=== PATIENT | female | born 1955 | race Caucasian/White ===

== ENCOUNTER 2019-04-15 17:03 | Outpatient (RCR) | payer OTHER, SELFPAY ==
--- NOTE | 2019-04-15 17:37 | PTOPEVAL ---
Thank you for referring this patient to [facility]. Please review, sign, date and return this plan of care BRIAN. I agree with and certify that the following plan of care is medically necessary. Referring Physician Date Admitting Provider: Attending Provider: Dilshad Portillo MD Referring Provider: *PT Outpatient Evaluation Start: 04/15/19 17:12 Freq: Status: Active Protocol: Document 04/15/19 17:14 [facility] (Rec: 04/15/19 17:36 [email or web address]) Therapy Assessment Status Assessment Status Assessment Status Evaluation Evaluation Information Problem Diagnosis neck pain Onset 04/08/19 Subjective Information Pt. reports that she developed Query Text:As Reported By Patient/ neck pain first in September of 2017. she reports she did therapy and was comfortable for 1 1/2 years. She reports 1 week ago pain came on again. she describes pain in the left side of the neck, into the left shoulder blade and long term down the left arm. She reports her goal is to decrease her pain. Previous Treatments Previous Treatments For This Problem PT with STM and exercise Prior Level of Function Activity Level (Last 3 Months) Hand Dominance Right Activity of Daily Living Ability Independent Indoor/Home Mobility Independent Community Mobility Independent Stairs Ability Independent Functional Cognition (Planning, Shopping Independent , Taking Medications) Cooking Yes Cleaning Yes Laundry Yes Shopping Yes Driving Yes Comments Additional Prior Level of Function Pt. 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 Pain Assessment Timing of Pain Assessment Timing of Pain Assessment Pre-Treatment Pain Scale Pain Scale Used Numeric (1 - 10) Self Report Pain Assessment Neck Reported Pain Level 2 Pain Frequency Continuous Current Pain Intensity 2 Lowest Pain Intensity 2 Greatest Pain Intensity 9 Pain Aggravating Factors Prolonged Position Other Pain Aggravating Factors having her head tilted at an
--- NOTE | 2019-05-06 09:50 | PCPTNOTE ---
05/06/19, pt cancelled appointment on 05/04/19 no reason stated. -.
--- NOTE | 2019-06-24 12:41 | PTOPEVAL ---
Thank you for referring this patient to [facility]. Please review, sign, date and return this plan of care BRIAN. I agree with and certify that the following plan of care is medically necessary. Referring Physician Date Admitting Provider: Attending Provider: Dilshad Portillo MD Referring Provider: *PT Outpatient Evaluation Start: 04/15/19 17:12 Freq: Status: Active Protocol: Document 04/15/19 17:14 [place] (Rec: 04/15/19 17:36 [email or web address]) Therapy Assessment Status Assessment Status Assessment Status Evaluation Evaluation Information Problem Diagnosis neck pain Onset 04/08/19 Subjective Information Pt. reports that she developed Query Text:As Reported By Patient/ neck pain first in September of 2017. she reports she did therapy and was comfortable for 1 1/2 years. She reports 1 week ago pain came on again. she describes pain in the left side of the neck, into the left shoulder blade and nursing home down the left arm. She reports her goal is to decrease her pain. Previous Treatments Previous Treatments For This Problem PT with STM and exercise Prior Level of Function Activity Level (Last 3 Months) Hand Dominance Right Activity of Daily Living Ability Independent Indoor/Home Mobility Independent Community Mobility Independent Stairs Ability Independent Functional Cognition (Planning, Shopping Independent , Taking Medications) Cooking Yes Cleaning Yes Laundry Yes Shopping Yes Driving Yes Comments Additional Prior Level of Function Pt. 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 Pain Assessment Timing of Pain Assessment Timing of Pain Assessment Pre-Treatment Pain Scale Pain Scale Used Numeric (1 - 10) Self Report Pain Assessment Neck Reported Pain Level 2 Pain Frequency Continuous Current Pain Intensity 2 Lowest Pain Intensity 2 Greatest Pain Intensity 9 Pain Aggravating Factors Prolonged Position Other Pain Aggravating Factors having her head tilted at an
--- NOTE | 2019-06-24 12:41 | PCPTNOTE ---
Pt. has failed to return to the clinic. She will be discharged at this time. Refer to last daily note for pt. discharge status.
== END 2019-04-15 17:04 | disposition home or self-care (01) ==
LOC: CHSPT 17:03
PROVIDERS: Visit Provider Internal Medicine
DX: M54.2 Cervicalgia (principal)
CPT/HCPCS: 97014; 97110; 97161; G0283

== ENCOUNTER 2020-09-08 12:14 | Outpatient (CLI) | payer OTHER, SELFPAY ==
--- NOTE | ~2020-09-08 | DEXA_ITS ---
Bone Density Report Name: Kalani Headley Age: 65 Sex: Female Ethnicity: White Date of : 1955 Indication: postmenopausal; screening for osteoporosis; height loss; Referring Provider: Dilshad Portillo Study: Bone densitometry was performed. Exam Date: September 08, 2020 Accession number: [id number] Bone Density: Region BMD T-score Z-score Classification AP Spine(L1-L4) 1.015 -0.3 1.4 Normal Femoral Neck (Left) 0.749 -0.9 0.5 Normal Total Hip (Left) 1.042 0.8 1.9 Normal Femoral Neck (Right) 0.877 0.3 1.7 Normal Total Hip (Right) 1.068 1.0 2.2 Normal Femoral Neck Mean 0.813 -0.3 1.1 Normal Total Hip Mean 1.055 0.9 2.1 Normal World Health Organization criteria for BMD impression classify patients as: Normal (T-score at or above -1.0), Osteopenia (T-score between -1.0 and -2.5), or Osteoporosis (T-score at or below -2.5). 10-year Fracture Risk: FRAX not reported because: All T-scores for Spine Total, Hip Total, Femoral Neck at or above -1.0 Previous Exams: Region Exam Age BMD T-score BMD Change BMD Change Date g/cm2 vs Baseline vs Previous AP Spine (L1-L4) 09/08/2020 65 1.015 -0.3 -0.008 (-0.8%) -0.001 (-0.1%) 09/13/2016 61 1.016 -0.3 -0.007 (-0.7%) 0.063 (6.6%)* 06/16/2010 55 0.954 -0.8 -0.070 (-6.8%) -0.070 (-6.8%) 02/02/2008 52 1.023 -0.2 Total Hip(Left) 09/08/2020 65 1.042 0.8 0.094 (10.0%)# 0.043 (4.3%)# 09/13/2016 61 0.999 0.5 0.052 (5.4%)* -0.004 (-0.4%) 06/16/2010 55 1.003 0.5 0.055 (5.9%)* 0.055 (5.9%)* 02/02/2008 52 0.947 0.0 Total Hip(Right) 09/08/2020 65 1.068 1.0 0.018 (1.7%)# 0.048 (4.7%)# 06/16/2010 55 1.020 0.6 -0.030 (-2.9%) -0.030 (-2.9%) 02/02/2008 52 1.050 0.9 *Denotes significance at 95% confidence level, LSC for AP Spine = 0.022 g/cm2, LSC for Total Hip = 0.027 g/cm2 # Denotes dissimilar scan types or analysis methods Clinical Information Provided by Patient: Has used the following medications: Vitamin D Patient maximum height was 64 Onset of menses at age 15 Number of children 1 Impression: The patient has normal bone mass. No significant bone loss was observed. Discussion: BONE DENSITY IS ABOVE THE MINIMUM DESIRABLE LEVEL AT ALL SKELETAL SITES TESTED. This patient?s bone mineral density is above the minimum desirable level (T-score -1.0 or better) at all sites measured. The patient should follow a
--- NOTE | ~2020-09-08 | MM_ITS ---
EXAMINATION: MM screening [facility] BI w [facility]arrison HISTORY: Screening mammogram TECHNIQUE: Craniocaudal and mediolateral oblique 3-D tomosynthesis images were obtained and synthetic 2-D images were generated. CAD analysis was submitted and interpreted. COMPARISON: 09/13/2016, 08/03/2015, 07/21/2012 BREAST PARENCHYMAL COMPOSITION: The breasts are almost entirely fatty. FINDINGS: There is no evidence of suspicious mass, calcification, or architectural distortion to sugg est malignancy in either breast. There has been no suspicious interval change. IMPRESSION: 1. No mammographic evidence of malignancy. 2. Recommend routine screening mammography in one year. BI-RADS Category 1: Negative Reviewed, dictated and finalized at location A.
== END 2020-09-08 12:15 | disposition home or self-care (01) ==
PROVIDERS: PCP Internal Medicine; Visit Provider Internal Medicine
DX: Z12.31 Encounter for screening mammogram for malignant neoplasm of breast (principal); Z78.0 Asymptomatic menopausal state
CPT/HCPCS: 77063; 77067; 77080

== ENCOUNTER 2020-11-02 15:55 | Outpatient (RCR) | payer OTHER, SELFPAY ==
--- NOTE | 2020-11-02 16:22 | PTOPEVAL ---
Thank you for referring Kalani Headley to [facility].? The patient is scheduled to be seen for therapy? __2__x/week for 8 visits. Please review, sign, date and return this plan of care BRIAN. I agree with and certify that the following plan of care is medically necessary. Referring Physician Date Admitting Provider: Attending Provider: Carmen Mckinney, LOOKBACK COORDINATOR Referring Provider: *PT Outpatient Evaluation Start: 11/02/20 15:52 Freq: Status: Active Protocol: Document 11/02/20 15:55 OTILIA (Rec: 11/02/20 16:19 [email or web address]) Therapy Assessment Status Assessment Status Assessment Status Evaluation Evaluation Information Problem Diagnosis neck pain Onset 10/27/20 Subjective Information Pt. reports that she woke with Query Text:As Reported By Patient/ neck pain about 1 week ago. Family She has a hx of on/off neck pain. She notes pain into the described upper trap and radiating down the left arm. Pt. notes a dull ache in the upper arm and tingling at the fingers. She states that she does get a sharp pain into the neck. she was given mm. relaxor and anti-inflammatory medication. She states that she has had success with therapy in the past. She reports that she is only mildly distrubed with sleep. She reports her goal is to decrease her pain. 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
--- NOTE | 2020-12-22 21:16 | PTOPEVAL ---
Thank you for referring Kalani Headley to [facility].? The patient is scheduled to be seen for therapy? ____x/week for ___ weeks. Please review, sign, date and return this plan of care BRIAN. I agree with and certify that the following plan of care is medically necessary. Referring Physician Date Admitting Provider: Attending Provider: Carmen Mckinney, [facility] Referring Provider: *PT Outpatient Evaluation Start: 11/02/20 15:52 Freq: Status: Active Protocol: Document 12/15/20 17:00 [facility] (Rec: 12/22/20 21:15 J filej) Therapy Assessment Status Assessment Status Assessment Status Discharge Evaluation Information Problem Diagnosis neck pain Onset 10/27/20 Additional Evaluation Detail NDI = 2% functionally declined Subjective Information patient reports she does not Query Text:As Reported By Patient/ feel 100% improved, but Family reports 60-70% improvement in sensation and functional performance. she reporrts she is able to work without severe symptoms, and reports she is able to find relief with exercises and traction. she reports her symptoms are no longer constant. she reports she returns back to the MD in about 1 month. she reports she is compliant with HEP at home , and uses the home mechanics/ pneumatic traction device 2 times a week. Pain Assessment Timing of Pain Assessment Timing of Pain Assessment Assessment Pain Scale Pain Scale Used Numeric (1 - 10) Self Report Pain Assessment Left Arm(s) Reported Pain Level 2 Neck Reported Pain Level 0 Pain Score Pain Score 2,0: Self Report Interventions Used Interventions Used By Clinicians Electrical Stimulation, Exercise,Heat,Traction Cervical and Lumbar ROM Cervical ROM Cervical Flexion (0-60) 50 Query Text:Active in Degrees Cervical Extension (0-70) 60 Query Text:Active in Degrees Cervical Lateral Flexion Right (0-50) 35 Query Text:Active in Degrees Cervical Lateral Flexion Left (0-50) 35 Query Text:Active in Degrees Cervical Rotation Right (0-90) 75 Query Text:Active in Degrees Cervical Rotation Left (0-90) 70 Query Text:Active in Degrees Cervical and Lumbar Muscle Testing Cervical Muscle Testing Cervical Flexion 4 Good Cervical Extension
== END 2020-12-15 08:37 | disposition home or self-care (01) ==
LOC: CHSPT 15:55
PROVIDERS: PCP Nurse Practitioner Family; Visit Provider Nurse Practitioner Family
DX: M54.2 Cervicalgia (principal)
CPT/HCPCS: 97012; 97014; 97110; 97140; 97161; G0283

== ENCOUNTER 2020-11-16 09:42 | Outpatient (CLI) | payer OTHER, SELFPAY ==
--- NOTE | ~2020-11-16 | MR_ITS ---
EXAMINATION: MR cervical spine wo con EXAM DATE: 11/16/2020 10:41 INDICATION: Cervical disc disorder at C5-C6 level radiculopath. TECHNIQUE: Multi-sequential, multiplanar MR images of the cervical spine were obtained without contra st. Axial T2, axial T2 MERGE sequence. Sagittal T1, T2, T2 fat saturation images also obtained. Com parison is made to prior examination from 12/23/2017. FINDINGS: Moderate disc disease at C5-6 and 6-7, mild to moderate at C3-4. The spinal cord signal in tensity and intrinsic morphology is normal. Cervicomedullary junction is normal in appearance. There are no suspicious marrow signal abnormalities. Paraspinal soft tissue is unremarkable. The vertebral bodies are aligned in the AP dimension. Level by level evaluation: C2-C3: Disc does not extend beyond the endplate margin. Uncovertebral joint arthropathy: None. Facet joint arthropathy: Moderate right, mild left. Neural foraminal stenosis: No stenosis. Central canal stenosis: No stenosis. C3-C4: There is a mild diffuse disc bulge. Uncovertebral joint arthropathy: Mild bilateral. Facet joint arthropathy: Mild to moderate bilateral. Neural foraminal stenosis: Mild bilateral. Central canal stenosis: Minimal. C4-C5: Disc does not extend beyond the endplate margin. Uncovertebral joint arthropathy: Mild bilateral. Facet joint arthropathy: Moderate to severe right, mild to moderate left. Neural foraminal stenosis: Mild right. Central canal stenosis: No stenosis. C5-C6: There is a mild diffuse disc bulge. Uncovertebral joint arthropathy: Moderate right, mild left. Facet joint arthropathy: Mild to moderate bilateral. Neural foraminal stenosis: Moderate right, mild to moderate left. Central canal stenosis: Mild. C6-C7: There is a mild diffuse disc bulge. Uncovertebral joint arthropathy: Moderate right, mild to moderate left. Facet joint arthropathy: Mild bilateral. Neural foraminal stenosis: Moderate to severe bilateral. Central canal stenosis: Mild. C7-T1: Disc does not extend beyond the endplate margin. Uncovertebral joint arthropathy: Mild bilateral. Facet joint arthropathy: Mild bilateral. Neural foraminal stenosis: No stenosis. Central canal stenosis: No stenosis. Mild interval progression in disc disease compared to 2018. IMPRESSION: 1. C6-7 moderate to severe neural foraminal stenosis bilaterally. 2. Less stenosis other levels. Reviewed, dictated and finalized at location A.
== END 2020-11-16 09:43 | disposition home or self-care (01) ==
LOC: CHSIMG 09:43
PROVIDERS: PCP Internal Medicine; Visit Provider Internal Medicine
DX: M54.12 Radiculopathy, cervical region (principal); M48.02 Spinal stenosis, cervical region
CPT/HCPCS: 72141

== ENCOUNTER 2021-10-27 09:32 | Outpatient (CLI) | payer OTHER, SELFPAY ==
--- NOTE | 2021-10-27 09:55 | PC.NURSE ---
Pt to room 211 amb. A&Ox3. Has no complaints. Plan of care explained. Consent signed. Pt without questions. Oriented to room. Call rodriguez in reach.
[2021-10-27] MEDS: BEBTELOVIMAB 175 MG/2 ML VIAL IV PUSH (10:00)
[2021-10-27] MEDS: diphenhydrAMINE HCl CAP 25 MG CAPSULE PO (10:00)
[2021-10-27] MEDS: FAMOTIDINE 20 MG TABLET PO (10:00)
[2021-10-27] MEDS: ACETAMINOPHEN 325 MG TABLET 650 MG PO (10:00)
--- NOTE | 2021-10-27 10:51 | PC.NURSE ---
Pt tolerated medication well. Has no complaints. Discharged to home amb per self.
== END 2021-10-27 09:33 | disposition home or self-care (01) ==
PROVIDERS: PCP Internal Medicine; Visit Provider Nurse Practitioner Family
DX: U07.1 COVID-19 (principal); I10 Essential (primary) hypertension; J44.9 Chronic obstructive pulmonary disease, unspecified
CPT/HCPCS: A9270; M0222; Q0222

== ENCOUNTER 2022-09-13 14:26 | Outpatient (CLI) | payer OTHER, SELFPAY ==
--- NOTE | ~2022-09-13 | XR_ITS ---
Right Shoulder Technique: AP and scapular Y views were obtained. Clinical History: Pain Findings: No fracture or dislocation is seen. Osseous alignment is anatomic. The glenohumeral and acr omioclavicular joint spaces are preserved. Soft tissues are unremarkable. Impression: Unremarkable right shoulder radiographs. Reviewed, dictated and finalized at [facility]. Impression: Unremarkable right shoulder radiographs.
== END 2022-09-13 14:27 | disposition home or self-care (01) ==
PROVIDERS: PCP Internal Medicine; Visit Provider Internal Medicine
DX: M25.511 Pain in right shoulder (principal)
CPT/HCPCS: 73030

== ENCOUNTER 2022-09-18 16:00 | Outpatient (RCR) | payer OTHER, SELFPAY ==
--- NOTE | 2022-09-20 08:13 | OPREHPOC ---
Outpatient Therapy Plan of Care This is a Multidisciplinary Plan of Care that may contain components documented by all disciplines (PT, OT, and ST.) PT Problem 1 PT Problem #1 Knowledge Deficit PT Goal 1 Goal The patient will demonstrate independence with a home exercise program to continue after discharge from skilled PT. Target Visit 8 PT Problem 2 PT Problem #2 Pain PT Goal 1 Goal The patient will report no greater than 2/10 right shoulder pain with lifting household items. Target Visit 8 PT Problem 3 PT Problem #3 Impaired Range of Motion PT Goal 1 Goal The patient will demonstrate right shoulder flexion AROM of 165 degrees without pain elicited to improve reaching overhead ability. Target Visit 8 PT Problem 4 PT Problem #4 Impaired Strength PT Goal 1 Goal The patient will lift 5 lbs overhead for 10 repetitions without pain in order to return to putting items into overhead cabinets. Target Visit 8
--- NOTE | 2022-09-20 08:13 | PTOPEVAL1 ---
Assessment and note entered by Charleen Wallis, PT Evaluation Information Assessment Status Evaluation Diagnosis R shoulder pain Onset 09/14/22 Subjective Information Kalani Headley reports she started having right shoulder pain approximately 2.5 months ago for unknown reasons. She started noticing the pain when she would lift a jug and try to pour the liquid out. She then started having pain with lifting out to the side. She notes the pain is easing but she had her annual check up last week and mentioned the shoulder pain. Her doctor referred her to have a x-ray and to PT. She reports no results of the x-ray were shared with her. Reported Pain Level Pain Score 3: Self Report Assessment PT Clinical Summary Kalani Headley presents with right shoulder pain with an insidious onset approximately 2.5 months ago. She is reporting difficulty with reaching to the side and overhead leading to deficits in daily function. She objectively demonstrates decreased and painful right shoulder flexion ROM, decreased right shoulder strength, positive special tests consistent with rotator cuff tendonitis and impingement, and decreased functional abilities. She will benefit from skilled PT to address these limitations and return her to her previous level of function. Plan of Care Interventions Electrical Stimulation,Hot Pack/Cold Pack,Manual Therapy,Patient/Caregiver Educati,Therapeutic Activities,Therapeutic Exercise PT Services Indicated Yes Treatment Frequency and 2 times a week for 8 visits Duration These treatments will address the objective and functional deficits as defined above. The patient will be advanced safely and appropriately in order for the patient to progress towards his/her prior level of function. Additional exercises will be introduced and as well as a comprehensive home exercise program upon discharge, if needed, ?to ensure carryover of functional gains achieved in the clinic. This treatment plan has been reviewed and agreement upon by the patient.
--- NOTE | 2022-10-18 12:43 | PTOPDC ---
Assessment and note entered by JT File, PT Evaluation Information Assessment Status Discharge Diagnosis R shoulder pain Onset 09/14/22 Subjective Information patient reports she feels great today. she reports the shoulder is much better. she has no pain. 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 she presents today having met all goals for skilled PT. she will DC skilled PT today and continue with HEP independent . Plan of Care PT Services Indicated Yes
--- NOTE | 2022-10-18 12:43 | OPREHPOC ---
Outpatient Therapy Plan of Care This is a Multidisciplinary Plan of Care that may contain components documented by all disciplines (PT, OT, and ST.) PT Problem 1 PT Problem #1 Knowledge Deficit PT Goal 1 Goal The patient will demonstrate independence with a home exercise program to continue after discharge from skilled PT. Target Visit 8 Progress Met PT Problem 2 PT Problem #2 Pain PT Goal 1 Goal The patient will report no greater than 2/10 right shoulder pain with lifting household items. Target Visit 8 Progress Met PT Problem 3 PT Problem #3 Impaired Range of Motion PT Goal 1 Goal The patient will demonstrate right shoulder flexion AROM of 165 degrees without pain elicited to improve reaching overhead ability. Target Visit 8 Progress Met PT Problem 4 PT Problem #4 Impaired Strength PT Goal 1 Goal The patient will lift 5 lbs overhead for 10 repetitions without pain in order to return to putting items into overhead cabinets. Target Visit 8 Progress Met
== END 2022-10-18 13:33 | disposition home or self-care (01) ==
LOC: CHSPT 16:00
PROVIDERS: PCP Internal Medicine; Visit Provider Internal Medicine
DX: M25.511 Pain in right shoulder (principal)
CPT/HCPCS: 97014; 97110; 97112; 97161; G0283

== ENCOUNTER 2022-09-20 11:44 | Outpatient (CLI) | payer OTHER, SELFPAY ==
--- NOTE | ~2022-09-20 | MM_ITS ---
EXAMINATION: MM screening [facility] BI w [facility] HISTORY: Screening mammogram TECHNIQUE: Craniocaudal and mediolateral oblique 3-D tomosynthesis images were obtained and synthetic 2-D images were generated. CAD analysis was submitted and interpreted. COMPARISON: 09/08/2020, 09/13/2016, 08/03/2015 BREAST PARENCHYMAL COMPOSITION: The breasts are almost entirely fatty. FINDINGS: No suspicious mass, calcification, or architectural distortion are identified in either peri ast to suggest malignancy. There has been no suspicious interval change. IMPRESSION: 1. No mammographic evidence of malignancy. 2. Recommend routine screening mammography in one year. BI-RADS Category 1: Negative Reviewed, dictated and finalized at location A.
== END 2022-09-20 11:45 | disposition home or self-care (01) ==
LOC: CHSIMG 11:45
PROVIDERS: PCP Internal Medicine; Visit Provider Internal Medicine
DX: Z12.31 Encounter for screening mammogram for malignant neoplasm of breast (principal)
CPT/HCPCS: 77063; 77067

== ENCOUNTER 2022-10-18 07:47 | Outpatient (CLI) | payer OTHER, SELFPAY ==
--- NOTE | ~2022-10-18 | US_ITS ---
EXAMINATION: US aorta [facility] DATE: 10/18/2022 08:34 CDT INDICATION: Abdominal aortic aneurysm screening. Hypertension. Obesity. TECHNIQUE: Grayscale, color Doppler, and pulsed Doppler images of the aorta and common iliac arteries were obtained. COMPARISON: No prior studies for comparison. FINDINGS: The proximal aorta is not visualized due to patient body habitus and bowel gas. The mid aorta measure s 1.8 cm sagittal dimension. The distal aorta measures 1.4 cm sagittal dimension. The right common in ternal iliac artery measures 1 cm. The left common iliac artery measures 1 cm. IMPRESSION: 1. Normal caliber aorta without evidence for aneurysm. Limited study. Proximal abdominal aorta not vi sualized. Reviewed, dictated and finalized at location L. IMPRESSION: 1. Normal caliber aorta without evidence for aneurysm. Limited study. Proximal abdominal aorta not visualized.
--- NOTE | ~2022-10-18 | CT_ITS ---
EXAMINATION: CT lung screening DATE: 10/18/2022 08:30 INDICATION: Shortness of breath. Lung cancer screening. COPD. TECHNIQUE: Computed tomography (CT) of the chest was performed without intravenous contrast. The dose -length product was 387.94 mGy-cm. Automated exposure control and iterative reconstruction technique were employed. COMPARISON: Chest x-ray dated 09/21/2017 FINDINGS: Mild atherosclerosis of the aorta and coronary arteries. No significant pleural or pericard ial effusion. There are cholecystectomy clips. The upper abdomen is otherwise unremarkable. No thorac ic lymphadenopathy. Mild thoracic spondylosis. No endobronchial lesions. No pneumothorax. No focal ai rspace consolidation. There is a 2 mm right upper lobe nodule, image 29. There is a 2 mm fissural nod ule on the right, coronal image 104. IMPRESSION: 1. Lung-RADS category 2: Benign appearance or behavior. Continue annual screening with noncontrast lo w-dose chest CT in 12 months. Reviewed, dictated and finalized at location L. IMPRESSION: 1. Lung-RADS category 2: Benign appearance or behavior. Continue annual screeni ng with noncontrast low-dose chest CT in 12 months.
== END 2022-10-18 07:48 | disposition home or self-care (01) ==
PROVIDERS: PCP Internal Medicine; Visit Provider Internal Medicine
DX: Z12.2 Encounter for screening for malignant neoplasm of respiratory organs (principal); Z87.891 Personal history of nicotine dependence
CPT/HCPCS: 71271; 76706

== ENCOUNTER 2023-10-28 08:53 | Outpatient (CLI) | payer OTHER, SELFPAY ==
--- NOTE | 2023-10-28 09:06 | EST_ITS ---
Patient Info Name: Kalani Headley Age: 68 years : 1955 Gender: Female Ht: 65 in Wt: 299 lbs BSA: 2.58 m2 HR: 85 bpm BP: 169 / 68 mmHg Heart Rhythm: Sinus Rhythm Technical Quality: Good Exam Date: 10/28/2023 9:52 AM Exam Location: Echo Lab Patient Status: Outpatient Admit Date: 10/28/2023 Staff Ordering Physician: Dilshad Portillo MD Attending Provider: Dilshad Portillo MD Exam Type: CA stress jay w NM Study Info A regadenoson stress test was performed. History/Risk Factors Hypertension: Yes Obesity: Yes COPD: Not Treated Summary 1. 1. Negative lexiscan stress test for ischemic ST changes by ECG criteria. 2. 2. Baseline hypertension. 3. 3. Nuclear scan to follow and will be reported separately. Please correlate with it. Protocol: LEXISCAN Stress ECG Details Stage: REST Duration (min): 5 min : 6 sec HR (bpm): 89 SBP (mmHg): 169 DBP (mmHg): 68 Stage: REST Duration (min): 9 min : 19 sec HR (bpm): 73 SBP (mmHg): 169 DBP (mmHg): 68 Stage: STAGE 1 Duration (min): 0 min : 27 sec HR (bpm): 79 SBP (mmHg): 169 DBP (mmHg): 68 Stage: RECOVERY Duration (min): 0 min : 32 sec HR (bpm): 98 SBP (mmHg): 169 DBP (mmHg): 68 Stage: RECOVERY Duration (min): 1 min : 32 sec HR (bpm): 102 SBP (mmHg): 169 DBP (mmHg): 68 Stage: RECOVERY Duration (min): 2 min : 32 sec HR (bpm): 89 SBP (mmHg): 141 DBP (mmHg): 68 Stage: RECOVERY Duration (min): 3 min : 32 sec HR (bpm): 90 SBP (mmHg): 141 DBP (mmHg): 68 Stage: RECOVERY Duration (min): 4 min : 32 sec HR (bpm): 94 SBP (mmHg): 141 DBP (mmHg): 68 Stage: RECOVERY Duration (min): 5 min : 32 sec HR (bpm): 88 SBP (mmHg): 126 DBP (mmHg): 71 Stage: RECOVERY Duration (min): 6 min : 19 sec HR (bpm): 81 SBP (mmHg): 123 DBP (mmHg): 77 Rest HR: 73 bpm Peak HR: 102 bpm Rest Sys BP: 169 mmHg Peak Sys BP: 141 mmHg Max Pred HR: 154 bpm % Max Pred HR: 66 % Target HR: 131 bpm Max RPP: 14,382 bpm*mmHg BP Response: Normal blood pressure response Termination Reason: Completed Protocol Cardiac Symptoms: None Total Time: 0 min : 27 sec Rest Farrell BP: 68 mmHg Peak Farrell BP: 68 mmHg Total Dose: 0.4 mg Resting ECG Normal sinus rhythm, low voltage in diffuse leads. Stress ECG No abnormal ST/T wave changes. Arrhythmias Occasional PACs. Occasional PVCs. Report Signatures
--- NOTE | 2023-10-28 15:04 | WPDCARIOSTRE ---
Nuclear Stress Test INDICATIONS Indications: Dyspnea PROCEDURE Procedure Performed: Myocardial Perf Spect-Multi Procedure: Patient underwent a lexiscan stress test and immediately was injected with 33.2 mCi of cardiolyte. Multiple tomographic images were obtained. These are of good quality. There is a moderate size, severe anterior perfusion defect with stress imaging. A separate resting images were obtained after patient was injected with 10.5 mCi of cardiolyte. Multiple tomographic images were obtained. These are of good quality. There is no perfusion defect with rest imaging. CONCLUSION Conclusion: 1. Abnormal myocardial perfusion imaging demonstrating moderate size anterior perfusion defect with stress imaging suggestive of anterior ischemia. 2. Left ventriculogram demonstrates normal measured ejection fraction of 62% with no wall motion abnormalities. 3. TID score 1.02 is normal.
== END 2023-10-28 08:54 | disposition home or self-care (01) ==
LOC: CHSIMG 08:55
PROVIDERS: PCP Internal Medicine; Visit Provider Internal Medicine
DX: R06.00 Dyspnea, unspecified (principal); I25.10 Atherosclerotic heart disease of native coronary artery without angina pectoris; R94.39 Abnormal result of other cardiovascular function study
CPT/HCPCS: 78452; 93017; A9502; J2785

== ENCOUNTER 2024-05-14 12:50 | Outpatient (CLI) | payer OTHER, SELFPAY ==
--- NOTE | ~2024-05-14 | CT_ITS ---
EXAMINATION: CT lung screening DATE: 05/14/2024 13:14 INDICATION: SMOKER screening-QUIT X15YR AGO,CHRONIC SOB,COPD TECHNIQUE: Computed tomography (CT) of the chest was performed without intravenous contrast. Addition al 3D reconstructions utilizing coronal maximum intensity projection (MIP) were performed. Automated exposure control and iterative reconstruction technique were employed. The dose-length product was 46 3.00 mGy-cm. COMPARISON: 10/18/2022 FINDINGS: No significant change in a few scattered 2 mm or smaller bilateral pulmonary nodules. No pneumonia, p ulmonary edema or pleural effusion. Heart size is normal. Atherosclerotic coronary artery calcificati on. No pericardial effusion. Thoracic aorta is normal in caliber. No pathologically enlarged thoracic lymphadenopathy. Cholecystectomy clips at gallbladder fossa. Mild thoracic spondylosis. IMPRESSION: 1. Lung-RADS category 2: Benign appearance or behavior. Continue annual screening with noncontrast lo w-dose chest CT in 12 months. Reviewed, dictated and finalized at location B. LE WEB APPLICATION DEVELOPER IMPRESSION: 1. Lung-RADS category 2: Benign appearance or behavior. Continue annual screeni ng with noncontrast low-dose chest CT in 12 months.
== END 2024-05-14 12:51 | disposition home or self-care (01) ==
LOC: CHSIMG 12:53
PROVIDERS: PCP Internal Medicine; Visit Provider Internal Medicine
DX: Z12.2 Encounter for screening for malignant neoplasm of respiratory organs (principal); Z87.891 Personal history of nicotine dependence
CPT/HCPCS: 71271

== ENCOUNTER 2024-08-23 13:21 | Emergency (ER) | payer OTHER, SELFPAY ==
--- NOTE | ~2024-08-23 | XR_ITS ---
XR hip LT 2V w AP pelvis Ordering provider: Riley Betancourt MD History: . onset today, Lt. hip pain radiates up lower back. NKI . Comparison: None. FINDINGS: BONES: No acute fracture or dislocation. HIP JOINT SPACES: Moderate osteoarthritis bilaterally SACROILIAC JOINT SPACES/LUMBAR SPINE: The sacroiliac joint spaces are normal. Mild degenerative elizabeth es of the visualized lower lumbar spine. PUBIC SYMPHYSIS: Normal. SOFT TISSUES: Normal. IMPRESSION: No acute osseous abnormality pelvis and left hip. Bilateral moderate osteoarthritic changes. Reviewed, dictated and finalized at location A.
--- NOTE | ~2024-08-23 | XR_ITS ---
3 VIEWS LUMBAR SPINE Ordering provider: Riley Cruz MD History: . onset today, Lt. hip pain radiates up lower back. NKI . Comparison: None. FINDINGS: VERTEBRAL BODIES: No visible fracture or subluxation. Degenerative changes of the spine. DISK SPACES: Narrowing of the disc L1-L2, L2-L3, and L5-S1. Multilevel facet joint disease. SOFT TISSUES: Normal. IMPRESSION: No acute osseous abnormality lumbar spine. Multilevel degenerative disc disease. Reviewed, dictated and finalized at location A.
[2024-08-23 13:23] VITALS: BP 133/75; PULSE 73; RESP 20; TEMP 36.7; O2SAT 96
--- OUTSIDE RECORDS SUMMARY | 2024-08-23 13:23 | XMS_ITS | Encounter Summary ---
Author Organization [facility] Address [facility] [place] [address] Care Team Providers Care Rn Peritoneal Dialysis Name Role Phone Dilshad Portillo MD Primary Care Provider [phone] Gee Coyle MD Unavailable [phone] Encounter Details Date Type Department Care Team (Late st Contact Info) Description 09/19/2017 Abstract [facility] [address] [place] [phone] Gee Coyle MD [address] [place] [address] Social History Tobacco Use Types Packs/Day Years Used Date Smoking Tobacco: Former Smokeless Tobacco: Never Alcohol Use Standard Drinks/Week Comments No 0 (1 standard drink = 0.6 oz pur e alcohol) Comments Unknown Sex and Gender Information Value Date Recorded Sex Assigned at Not on file Legal Sex Female 8:42 AM CDT Gender Identity Not on file Sexual Orientation Not on file 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
--- OUTSIDE RECORDS SUMMARY | 2024-08-23 13:23 | XMS_ITS ---
Author Organization Unknown Medications Medication Instructions Effective Dates (start - stop) Status ergocalciferol 1.25 MG Oral Capsule 02-26T00:00:00Z - Completed - - Compl eted ergocalciferol 1.25 MG Oral Capsule 05-27T00:00:00Z - Completed hydrochlorothiazide 25 MG / olmesartan medoxomil 40 MG Oral Tablet - Completed hydrochlorothiazide 25 MG / olmesartan medoxomil 40 MG Oral Tablet - Completed ergocalciferol 1.25 MG Oral Capsule 11-05T00:00:00Z - Completed ergocalciferol 1.25 MG Oral Capsule 08-18T00:00:00Z - Completed Patient Care team information Name Category Status Period Participants - - Proposed period not known -
--- OUTSIDE RECORDS SUMMARY | 2024-08-23 13:23 | XMS_ITS | Clinical Summary ---
Author Organization [facility] Address [place] [address] Care Team Providers Care Office Services Representative Name Role Phone Dilshad Portillo MD Primary Care Provider [phone] Gee Coyle MD Unavailable [phone] Allergies No known active allergies Medications fluticasone-salm eterol 250-50 MCG/DOSE inhaler Inhale 1 puff into the lungs 2 (two) times daily. Active albuterol sulfate HFA 108 (90 Base) MCG/ACT inhaler Inhale 2 puffs into the lungs every 6 (six) hours as needed for Wheezing. Active Active Problems Problem Noted Date Diagnosed Date Precordial pain 11/01/2017 COPD (chronic obstructive pu lmonary disease) ([facility]) Obesity HTN (hypertension) Family History Medical History Relation Comments Cancer Father Heart Attack Mother Relation Status Comments Father Mother Social History Tobacco Use Types Packs/Day Years [...] file Not on file Not on file Last Filed Vital Signs Vital Sign Reading Time Taken Comments Blood Pressure 120/64 11/12/2017 8:22 AM CDT left BP 128/62 Pulse 82 11/12/2017 8:22 AM CDT Temperature 36 C (96.8 F) 11/12/2017 8:22 AM CDT Respiratory Rate 16 11/12/2017 8:22 AM CDT Oxygen Saturation 16% 11/12/2017 8:2 2 AM CDT Inhaled Oxygen Concentration - - Weight 134.4 kg (296 lb 4.8 oz) 11/12/2017 8:22 AM CDT Height 163 cm (5' 4.17 ) 11/12/2017 8:2 2 AM CDT Body Mass Index 50.59 11/12/2017 8:22 AM CDT Plan of Treatment Health Maintenance Due Date Last Done Comments Colorectal Cancer Screening Colonoscopy (10 Years) 1955 Hepatitis C 1975 DTaP, Tdap and Td Vaccines ( 1 - Tdap) 1976 Pneumococcal Vaccine: 50+ Ye ars (1 of 2 - PCV) 1976 Mammogram Screening 1997 Zoster Vaccines (1 of 2) 2007 RSV Immunization or 60+ Years (1 - Risk 60-74 years 1-dose series) 2017 Dexa Scan (General) 2022 COVID-19 Vaccine (1 - 2023-2 5 season) 2023 Meningococcal B Vaccine Aged Out No l onger eligible based on patient's age to complete this topic Meningococcal Vaccine Aged Out No sofía hao eligible based on patient's age to complete this topic RSV Immunizations Under 20 Months Aged Out No longer eligible based on patient's age to complete this topic Insurance [facility] [facility] [employer] [facility] Advance Directives * Full Code (Latest Code Status on File) Date Activated Date Inactivated Comments 11/12/2017 12:24 PM 11/12/2017 6:00 PM Care Teams Office Services Representative Relationship Specialty Start Date End Date Dilshad Portillo MD [address] [place] [address] PCP - General INTERNAL MEDICINE 09/25/17 Gee Coyle MD [address] [place] [address] [employer] CARDIOVASCULAR DISEASE 09/25/17
--- NOTE | 2024-08-23 13:24 | ED_ITS ---
HPI - Back Pain/Injury General Chief Complaint: Extremity Injury, Lower Stated Complaint: hip pain Time Seen by Provider: 08/23/24 13:23 Source: patient, family and EMS Mode of arrival: EMS Limitations: no limitations History of Present Illness HPI Narrative: Patient is a 69-year-old female with left hip and left lower back pain that started today specifically. She has chronic pains since a fall many years ago as well. She has a shooting pain in the left hip and buttocks region. Pain is sharp an 8/10. No other symptoms. No urinary or bowel changes. No numbness. No recent injury. MD elicited complaint: other ( patient has acute onset of pain in the lower back and left hip region without injury) Pertinent past history: other ( none) Onset (ago): hour(s) ( 2) Timing: constant Severity: severe Pain scale (0-10): 8 Similar Symptoms Previously: Yes Quality: sharp and other ( shooting but not down the leg; only localized shooting pains of the buttocks on the left) Location: lumbar spine ( lower) Radiation: buttocks ( left) Exacerbating factors: walking Relieving factors: immobilization Context: other ( patient was walking to the kitchen and started to have the pain on the left hip buttocks region as well as lower back and it has not resolved since that time and she got into a chair and called EMS) Associated symptoms: denies other symptoms Treatments prior to arrival: other ( Toradol 30 mg given with EMS) Work related injury: No Related Data Home Medications ?Medication ?Instructions ?Recorded ?Confirmed ?Last Taken ?Type aspirin 81 mg chewable tablet 81 mg PO DAILY 08/23/24 Unknown History (Prasad Chewable Low Dose Aspirin) olmesartan 40 1 tablet PO DAILY 08/23/24 Unknown History mg-hydrochlorothiazide 25 mg tablet Allergies Allergy/AdvReac Type Severity Reaction Status Date / Time No Known Allergies Allergy Unverified 08/23/24 13:23 Review of Systems Review of Systems: All systems reviewed & are unremarkable except as noted in HPI and below Constitutional: Constitutional: Reports no additional constitutional complaints Eyes: Eyes: Reports no additional eye complaints ENT: Reports system reviewed and no additional complaints, except as documented Cardiovascular: Cardiovascular: Reports no additional cardiovascular complaints Respiratory: Respiratory: Reports no additional respiratory complaints Gastrointestinal: Gastrointestinal: Reports no additional gastrointestinal complaints Genitourinary: Genitourinary: Reports no additional female genitourinary complaints Musculoskeletal: Musculoskeletal: Reports no additional musculoskeletal complaints Integumentary/Breasts: Skin/Breast: Reports system reviewed and no additional complaints, except as docu Neurologic: Reports system reviewed and no additional complaints, except as documented Psychiatric: Psychiatric: Reports no additional psychiatric complaints Endocrine: Endocrine: Reports no additional endocrine complaints Hematologic/Lymphatic: Hematologic/Lymphatic: Reports no additional hematologic/lymphatic complaints Allergic/Immunologic: Allergic/Immunologic: Reports no additional allergic/immunologic complaints Exam Const: General: healthy appearing Nutritional Appearance: well nourished and obese Orientation/consciousness: patient oriented x3 HENMT: Head: normal to inspection Ears: external ears normal Face/Nose/Sinus: Normal external nose present Eyes: Conjunctivae: conjunctivae normal Pupils: Equal, round and reactive pupils present EOM: EOMs intact bilaterally Neck: Neck: normal visual inspection Chest: Chest palpation & inspection: normal inspection of the chest Resp: Effort & Inspection: normal respiratory effort and not labored Auscultation: clear to auscultation bilaterally and no crackles Cardio: Rate: regular rate Rhythm: regular rhythm Heart sounds: no murmurs GI: Inspection: non-distended GI Palp: Yes Soft to palpation and No Tenderness to palpation present (GI) Auscultation: normal bowel sounds : General: Yes bladder normal to palpation Back/Spine/Pelvis: Back: no CVA tenderness Skin: General skin exam: normal color Rashes: no rashes Wounds: no wounds Neuro: General: patient oriented x3 Cranial nerves: Yes Nystagmus not present Speech: normal speech Gait exam (Neuro): gait abnormal Other: gait is abnormal due to the pain on the left hip and buttocks region Extrem: General: normal to inspection Other: no sciatica on the left radiating below the knee Psych: Mental Status: mental status grossly normal Affect: normal affect Attitude: cooperative Course Vital Signs Vital signs: Vital Signs Temperature 36.7 C 08/23/24 13:23 Pulse Rate 73 08/23/24 13:23 Respiratory Rate 20 08/23/24 13:23 Blood Pressure 133/75 08/23/24 13:23 Pulse Oximetry 96 08/23/24 13:23 Oxygen Delivery Room Air 08/23/24 13:23 Temperature 36.6 C 08/23/24 15:07 Pulse Rate 75 08/23/24 15:07 Respiratory Rate 18 08/23/24 15:07 Blood Pressure 127/89 08/23/24 15:07 Pulse Oximetry 97 08/23/24 15:07 Oxygen Delivery Room Air 08/23/24 15:07 MDM - Back Pain/Injury MDM Narrative Medical decision making narrative: patient is a 69-year-old female with left buttocks and left hip pain acutely today. We will get x-rays to start and give her pain control. Imaging Data Attestation: I personally reviewed and interpreted this imaging study as follows: Radiologist's impression: X-ray lumbar spine was negative for acute process x-ray left hip and pelvis was negative for acute process Discharge Plan Discharge Clinical Impression: Piriformis syndrome Qualifiers: Laterality: left Qualified Code(s): G57.02 - Lesion of sciatic nerve, left lower limb Patient Disposition: Home Condition: Improved Instructions: Piriformis Syndrome (ED) Patient Language: Chinese Prescriptions: New hydrocodone-acetaminophen 5-325 mg tablet 1 tablet PO Q8H PRN (Reason: pain) Qty: 20 0RF cyclobenzaprine 10 mg tablet 10 mg PO TID PRN (Reason: muscle spasm) Qty: 20 0RF prednisone 20 mg tablet 40 mg PO DAILY 3 Days Qty: 6 0RF No Action aspirin [Prasad Chewable Aspirin] 81 mg tablet,chewable 81 mg PO DAILY olmesartan-hydrochlorothiazide 40-25 mg tablet 1 tablet PO DAILY Follow-up/Referrals: Dilshad Portillo MD [Primary Care Provider] - Time of Disposition: 15:14
[2024-08-23] MEDS: MORPHINE SULFATE (*CRX) 4 MG/ML INJ IM (13:40)
--- OUTSIDE RECORDS SUMMARY | 2024-08-23 14:17 | XMS_ITS | Clinical Summary ---
Author Organization [facility] Address [facility] [place] [address] Care Team Providers Care Inspector Returned Materials Name Role Phone Dilshad Portillo MD Primary Care Provider Gee Coyle MD Unavailable [phone] Allergies No known active allergies Medications fluticasone-salm eterol 250-50 MCG/DOSE inhaler Inhale 1 puff into the lungs 2 (two) times daily. Active albuterol sulfate HFA 108 (90 Base) MCG/ACT inhaler Inhale 2 puffs into the lungs every 6 (six) hours as needed for Wheezing. Active Active Problems Problem Noted Date Diagnosed Date Precordial pain 11/01/2017 COPD (chronic obstructive pu lmonary disease) ([facility]) Obesity HTN (hypertension) Family History Medical History [...] patient's age to complete this topic Insurance [employer] OPEN [facility] [employer] [facility] Advance Directives * Full Code (Latest Code Status on File) Date Activated Date Inactivated Comments 11/12/2017 12:24 PM 11/12/2017 6:00 PM Care Teams Inspector Returned Materials Relationship Specialty Start Date End Date Dilshad Portillo MD [address] [place] [address] PCP - General INTERNAL MEDICINE 09/25/17 Gee Coyle MD [address] [place] [address] [employer] CARDIOVASCULAR DISEASE 09/25/17
--- OUTSIDE RECORDS SUMMARY | 2024-08-23 14:17 | XMS_ITS | Referral Summary ---
Author Organization [facility] Address [facility] [place] [address] Care Team Providers Care Corporate Travel Manager Name Role Phone Dilshad Portillo MD Primary Care Provider Encounters Date Type Department Care Team Description 06/27/2024 9:00 AM FISHERIES OFFICER Telemedicine [facility] Medical Group Virtual Care [address] [place] [phone] Florence Barber NP Acute upper respiratory infection (Primary Dx) 05/25/2024 Telephone [facility] Cardiology [address] [place] [address] Medical Office Building [address] [place] [address] Garcia Portillo MD from Last 3 Months Allergies No known active allergies Medications albuterol HFA (PROVENTIL HFA,VENTOLIN HFA,PROAIR HFA) 90 mcg/actuation inhaler INHALE 2 PUFFS BY ORAL ROUTE EVERY 4 TO 6 HOURS NEEDED Active ergocalciferol (VITAMIN D) 50,000 unit capsule 4 Active olmesartan-hydr ochlorothiazide (BENICAR HCT) 40-25 mg per tablet 1 Active tiotropium (SPIRIVA) 18 mcg per inhalation capsule PLEASE SEE ATTACHED FOR DETAILED DIRECTIONS 4 Active aspirin 81 mg enteric coated tablet Take 1 tablet (81 mg total) by mouth daily Active Active Problems Problem Noted Date Diagnosed Date Coronary artery disease invo lving [place] coronary artery of [place] heart without angina pectoris 05/24/2024 Social History Tobacco Use Types Packs/Day Years Used Date Smoking Tobacco: Former Cigarettes Passive Smoke Exposure: Past Smokeless Tobacco: Never Tobacco Cessation:Counseling Given: Not Answered Comments Unknown Sex and Gender Information Value Date Recorded Sex Assigned at Not on file Legal Sex Female 5:21 PM FISHERIES OFFICER Gender Identity Female 11/04/2023 10:30 AM CDT Sexual Orientation Straight 11/04/2023 10 :30 AM CDT Last Filed Vital Signs Vital Sign Reading Time Taken Comments Blood Pressure 159/82 05/19/2024 11:32 AM FISHERIES OFFICER Pulse 83 05/19/2024 11:32 AM FISHERIES OFFICER Temperature 36.7 C (98 F) 05/19/2024 11:32 AM FISHERIES OFFICER Respiratory Rate - - Oxygen Saturation 96% 11/05/2023 10:31 AM CDT Inhaled Oxygen Concentration - - Weight 134.7 kg (297 lb) 05/19/2024 11:32 AM FISHERIES OFFICER Height 160 cm (5' 3 ) 05/19/2024 11:32 AM FISHERIES OFFICER Body Mass Index 52.61 05/19/2024 11:32 AM FISHERIES OFFICER Plan of Treatment Not on file Insurance [facility] [id number] [facility] [id number] Care Teams Corporate Travel Manager Relationship Specialty Start Date End Date Dilshad Portillo MD [address] [place] [address] PCP - General Internal Medicine 11/04/23
--- OUTSIDE RECORDS SUMMARY | 2024-08-23 14:17 | XMS_ITS | Encounter Summary ---
Author Organization [facility] Address [facility] [place] [address] Care Team Providers Care Freight Engineer Name Role Phone Dilshad Portillo MD Primary Care Provider [phone] Gee Coyle MD Unavailable [phone] Encounter Details Date Type Department Care Team (Late st Contact Info) Description 09/19/2017 Abstract [facility] AT [facility] [address] [place] [phone] Gee Coyle MD [address] [place] [address] Social History Tobacco Use Types [...] on filedocumented in this encounter Care Teams Freight Engineer Relationship Specialty Start Date End Date Dilshad Portillo MD [address] [place] [address] PCP - General INTERNAL MEDICINE 09/25/17 Gee Coyle MD [address] [place] [address] [employer] CARDIOVASCULAR DISEASE 09/25/17 documented as of this encounter
--- OUTSIDE RECORDS SUMMARY | 2024-08-23 14:17 | XMS_ITS | Clinical Summary ---
Author Organization [facility] Address [address] [place] [address] Care Team Providers Care Pad Making Machine Operator Name Role Phone Dilshad Portillo MD Primary Care Provider Allergies No known active allergies Medications albuterol [...] Diagnosed Date Coronary artery disease invo lving [place] coronary artery of [place] heart without angina pectoris 05/24/2024 Encounters Date Type Department Care Team Description 06/27/2024 9:00 AM BOARD LINER OPERATOR Telemedicine [facility] Medical Group Virtual Care [address] [place] [phone] Florence Barber NP Acute upper respiratory infection (Primary Dx) 05/25/2024 Telephone [facility] Cardiology [facility] Medical Office Building [address] [place] [address] Garcia Portillo MD from Last 3 Months Social History Tobacco Use Types Packs/Day Years Used Date Smoking Tobacco: Former Cigarettes Passive Smoke Exposure: Past Smokeless Tobacco: Never Tobacco Cessation:Counseling Given: Not Answered Comments Unknown Sex and Gender Information Value Date Recorded Sex Assigned at Not on file Legal Sex Female 5:21 PM BOARD LINER OPERATOR Gender Identity Female 11/04/2023 10:30 AM CDT Sexual Orientation Straight 11/04/2023 10 :30 AM CDT Obstetrics History Last Filed Vital Signs Vital Sign Reading Time Taken Comments Blood Pressure 159/82 05/19/2024 11:32 AM BOARD LINER OPERATOR Pulse 83 05/19/2024 11:32 AM BOARD LINER OPERATOR Temperature 36.7 C (98 F) 05/19/2024 11:32 AM BOARD LINER OPERATOR Respiratory Rate - - Oxygen Saturation 96% 11/05/2023 10:31 AM CDT Inhaled Oxygen Concentration - - Weight 134.7 kg (297 lb) 05/19/2024 11:32 AM BOARD LINER OPERATOR Height 160 cm (5' 3 ) 05/19/2024 11:32 AM BOARD LINER OPERATOR Body Mass Index 52.61 05/19/2024 11:32 AM BOARD LINER OPERATOR Plan of Treatment Health Maintenance Due Date Last Done Comments Breast Cancer Screening-Mammogram 1955 Colon Cancer Screening-Colonoscopy 1955 Depression Screening 1955 Fall Risk Assessment 1955 Hepatitis C Screening 1955 Osteoporosis Screening-Bone Density Scan 1955 Hepatitis B Screening 1975 Well Visit 65+ 2022 Pneumococcal vaccine 65+ (2 of 2 - PCV) 09/14/2023 09/13/2022, 07/29/2012 Covid-19 Vaccine (5 - 2023-2 5 season) 2023 03/15/2022, 03/13/2021, 07/17/2020, Additional history exists Influenza Vaccine (Season Ended) 2024 02/01/2023, 01/24/2022, 01/27/2021, Additional history exists DTaP/Tdap/Td Vaccine (3 - Td or Tdap) 07/14/2031 07/13/2021, 01/06/2010 Zoster Vaccine Completed 01/24/2022, 07/13/2021 [facility] [id number] [facility] [id number] Care Teams Pad Making Machine Operator Relationship Specialty Start Date End Date Dilshad Portillo MD [address] [place] [address] PCP - General Internal Medicine 11/04/23
--- OUTSIDE RECORDS SUMMARY | 2024-08-23 14:17 | XMS_ITS | Encounter Summary ---
Author Organization [facility] [employer] of [facility] Address [address] [place] [address] Phone Care Team Providers Care Construction Materials Tester Name Role Phone Dilshad Portillo MD Primary Care Provider [phone] Encounter Details Date Type Department Care Team (Latest Contact Info) Description 11/12/[address] 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 Gender Identity Female 11/04/2023 10:30 AM CDT Sexual Orientation Straight 11/04/2023 10 :30 AM CDT documented as of this encounter Plan of Treatment Not on file documented as of this encounter Procedures Procedure Name Priority Date/Time Associated Diagnosis Comments CARDIOLOGY DOCUMENT SCAN 11/12/2017 documented in this encounter Results * Cardiology Document Scan (11/12/2017) Anatomical Region Laterality Modality Other Maggie James RN CV CARDIAC SERVICES P ROCEDURES Edited Result - Final documented in this encounter Visit Diagnoses Not on filedocumented in this encounter Care Teams Construction Materials Tester Relationship Specialty Start Date End Date Dilshad Portillo MD [address] [place] [address] PCP - General Internal Medicine 11/04/23 documented as of this encounter
[2024-08-23] MEDS: CYCLOBENZAPRINE HCL 10 MG TABLET PO (14:34)
[2024-08-23] MEDS: predniSONE 20 MG TABLET 40 MG PO (14:34)
[2024-08-23 15:07] VITALS: BP 127/89; PULSE 75; RESP 18; TEMP 36.6; O2SAT 97
== END 2024-08-23 15:18 | disposition home or self-care (01) ==
PROVIDERS: Emergency Provider Emergency Medicine; PCP Internal Medicine
DX: G57.02 Lesion of sciatic nerve, left lower limb (principal); Z79.82 Long term (current) use of aspirin
CPT/HCPCS: 72100; 73502; 96372; 99284; A9270; J2270; J7512

== ENCOUNTER 2024-10-08 13:42 | Outpatient (RCR) | payer OTHER, SELFPAY ==
--- NOTE | 2024-10-09 07:00 | OPREHPOC ---
Outpatient Therapy Plan of Care This is a Multidisciplinary Plan of Care that may contain components documented by all disciplines (PT, OT, and ST.) PT Problem 1 PT Problem #1 Knowledge Deficit PT Goal 1 Goal / Goal Update Pt to be independent in HEP Target Visit 6 PT Problem 2 PT Problem #2 Impaired Functional Mobility PT Goal 1 Goal / Goal Update Pt to report 20% or less on the LEFS Pt to be able to walk 1100ft for the 6MWT with pain no higher than 2/10 Target Visit 12 PT Problem 3 PT Problem #3 Impaired Range of Motion PT Goal 1 Goal / Goal Update Pt R knee AROM to be 0-125 Target Visit 12 PT Problem 4 PT Problem #4 Impaired Strength PT Goal 1 Goal / Goal Update Pt to have 4+/5 strength overall in the R LE Target Visit 12
--- NOTE | 2024-10-09 07:00 | PTOPEVAL1 ---
Assessment and note entered by JT File, PT Evaluation Information Assessment Status Evaluation Diagnosis R knee OA Other ICD-10 Condition Codes ( M17.11 PT) Onset 10/01/24 Subjective Information Pt reports that she has had R knee pain off and on for a few years and 3 weeks ago the pain increased. Pt reports she had to use a walker, then she got a cortisone shot and is no longer using a device to walk. Pt reports that her knee feels swollen on the inside and hurts to touch. Pt reports that the shot did help a lot. Pt reports that in the morning her knee feels better but as she walks on it the pain increases throughout the day. Pt reports that walking and stairs make it worse. Pt reports that icing her knee seems to help. Pt reports that when she is walking that it feels like a peg leg. Pt reports that walking more than half a block increases the pain Reported Pain Level Pain Score 2: Self Report Assessment PT Clinical Summary Kalani is a 69 y/o female who presents to skilled PT with the diagnosis of R knee OA. Pt has deficits in ROM, strength, stability, and ambulation. Kalani's goal is to increase her walking distance so she can get around better in the community. Skilled PT is needed to improve her deficits, work on pts goals, and improve quality of life to return to [place]. Plan of Care Interventions Electrical Stimulation,Gait Training,Hot Pack/Cold Pack,Manual Therapy,Neuro Re-education, Therapeutic Activities,Therapeutic Exercise PT Services Indicated Yes Treatment Frequency and 2x a week for 12 visits Duration These treatments will address the objective and functional deficits as defined above. The patient will be advanced safely and appropriately in order for the patient to progress towards his/her prior level of function. Additional exercises will be introduced and as well as a comprehensive home exercise program upon discharge, if needed, ?to ensure carryover of functional gains achieved in the clinic. This treatment plan has been reviewed and agreement upon by the patient.
== END 2025-01-06 23:59 | disposition home or self-care (01) ==
LOC: CHSPT 13:42
PROVIDERS: Visit Provider Physician Assistant Surgical
DX: M17.11 Unilateral primary osteoarthritis, right knee (principal)
CPT/HCPCS: 97110; 97112; 97140; 97161; 97530

== ENCOUNTER 2024-11-12 13:20 | Outpatient (CLI) | payer OTHER, SELFPAY ==
--- NOTE | ~2024-11-12 | MM_ITS ---
EXAMINATION: MM screening [facility] BI w [facility] HISTORY: Screening TECHNIQUE: Craniocaudal and mediolateral oblique 3-D tomosynthesis images were obtained and synthetic 2-D images were generated. CAD analysis was submitted and interpreted. COMPARISON: Comparison to multiple prior studies sequentially, with oldest reviewed study dated 09/20. BREAST PARENCHYMAL COMPOSITION: Not Dense: The breasts are almost entirely fatty. FINDINGS: There is no evidence of suspicious mass, calcification, or architectural distortion to sugg est malignancy in either breast. There has been no suspicious interval change. IMPRESSION: 1. No mammographic evidence of malignancy. 2. Recommend routine screening mammography in one year. BI-RADS Category 1: Negative Reviewed, dictated and finalized at location B.
--- OUTSIDE RECORDS SUMMARY | 2024-11-12 13:24 | XMS_ITS | Encounter Summary ---
Author Organization [facility] [employer] of [facility] Address [address] [place] [address] Phone Care Team Providers Care Sas Bi Developer Name Role Phone Dilshad Portillo MD Primary Care Provider + [phone] Encounter Details Date Type Department Care Team (Latest Contact Info) Description 11/12/2017 Orders Only [facility] CARDIOLOGY Maggie James RN [address] [facility] [address] [place] [address] Social History Tobacco Use Types Packs/Day Years Used Date Smoking Tobacco: Never Assessed Comments Unknown Sex and Gender Information Value Date Recorded Sex Assigned at Not on file Legal Sex 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
--- OUTSIDE RECORDS SUMMARY | 2024-11-12 13:24 | XMS_ITS | Referral Summary ---
Author Organization [facility] Address [facility] [place] [address] Care Team Providers Care Shellfish Manager Name Role Phone Dilshad Portillo MD Primary Care Provider [phone] Allergies No known active allergies Medications albuterol [...] Diagnosed Date Coronary artery disease invo lving [place] coronary artery of [place] heart without angina pectoris 05/24/2024 Social History Tobacco Use Types Packs/Day Years Used Date Smoking Tobacco: Former Cigarettes Passive Smoke Exposure: Past Smokeless Tobacco: Never Tobacco Cessation:Counseling Given: Not Answered Comments Unknown Sex and Gender Information Value Date Recorded Sex Assigned at Not on file Legal Sex Female 5:21 PM ASSOCIATE Gender Identity Female 11/04/2023 10:30 AM CDT Sexual Orientation Straight 11/04/2023 10 :30 AM CDT Last Filed Vital Signs Vital Sign Reading Time Taken Comments Blood Pressure 159/82 05/19/2024 11:32 AM ASSOCIATE Pulse 83 05/19/2024 11:32 AM ASSOCIATE Temperature 36.7 C (98 F) 05/19/2024 11:32 AM ASSOCIATE Respiratory Rate - - Oxygen Saturation 96% 11/05/2023 10:31 AM CDT Inhaled Oxygen Concentration - - Weight 134.7 kg (297 lb) 05/19/2024 11:32 AM ASSOCIATE Height 160 cm (5' 3) 05/19/2024 11:32 AM ASSOCIATE Body Mass Index 52.61 05/19/2024 11:32 AM ASSOCIATE Plan of Treatment Not on file Insurance [facility] [id number] [facility] [id number] Care Teams Shellfish Manager Relationship Specialty Start Date End Date Dilshad Portillo MD [address] [place] [address] PCP - General Internal Medicine 11/04/23
--- OUTSIDE RECORDS SUMMARY | 2024-11-12 13:24 | XMS_ITS | Clinical Summary ---
Author Organization [facility] Address [facility] [place] [address] Care Team Providers Care Nurse Practitioner Hospitalist Name Role Phone Dilshad Portillo MD Primary Care Provider [phone] Allergies No known active allergies Medications albuterol [...] Diagnosed Date Coronary artery disease invo lving [place] coronary artery of [place] heart without angina pectoris 05/24/2024 Social History Tobacco Use Types Packs/Day Years Used Date Smoking Tobacco: Former Cigarettes Passive Smoke Exposure: Past Smokeless Tobacco: Never Tobacco Cessation:Counseling Given: Not Answered Comments Unknown Sex and Gender Information Value Date Recorded Sex Assigned at Not on file Legal Sex Female 5:21 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 Gender Identity Female 11/04/2023 10:30 AM CDT Sexual Orientation Straight 11/04/2023 10 :30 AM CDT Obstetrics History Last Filed Vital Signs Vital Sign Reading Time Taken Comments Blood Pressure 159/82 05/19/2024 11:32 AM SILVERSMITH APPRENTICE Pulse 83 05/19/2024 11:32 AM SILVERSMITH APPRENTICE Temperature 36.7 C (98 F) 05/19/2024 11:32 AM SILVERSMITH APPRENTICE Respiratory Rate - - Oxygen Saturation 96% 11/05/2023 10:31 AM CDT Inhaled Oxygen Concentration - - Weight 134.7 kg (297 lb) 05/19/2024 11:32 AM SILVERSMITH APPRENTICE Height 160 cm (5' 3) 05/19/2024 11:32 AM SILVERSMITH APPRENTICE Body Mass Index 52.61 05/19/2024 11:32 AM SILVERSMITH APPRENTICE Plan of Treatment Health Maintenance Due Date [...] 03/13/2021, 07/17/2020, Additional history exists Influenza Vaccine (#1) 2024 , 01/24/2022, 01/27/2021, Additional history exists DTaP/Tdap/Td Vaccine (3 - Td or Tdap) 07/14/2031 07/13/2021, 01/06/2010 Zoster Vaccine Completed 01/24/2022, 07/13/2021 Insurance [facility] [id number] [facility] [id number] Member Subscriber Plan / Payer (Ef fective 2011-Present) Name:PastoraedwinKalani Member ID:[id number] Relation to Subscriber:Self Name:Fang Kalani Subscriber ID:[id number] Payer ID:[id number] Type:[employer] HMO/PPO Address: [address] [place] [id number] Care Teams Nurse Practitioner Hospitalist Relationship Specialty Start Date End Date Dilshad Portillo MD [address] [place], [place] [id number] PCP - General Internal Medicine 11/04/23
--- OUTSIDE RECORDS SUMMARY | 2024-11-12 13:24 | XMS_ITS ---
Author Organization Unknown Medications Medication Instructions Effective Dates (start - stop) Status hydrochlorothiazide 25 MG / olmesartan medoxomil 40 MG Oral Tablet - Completed ergocalciferol 1.25 MG Oral Capsule 08-18T00:00:00Z - Completed ergocalciferol 1.25 MG Oral Capsule 05-27T00:00:00Z - Completed ergocalciferol 1.25 MG Oral Capsule 02-26T00:00:00Z - Completed hydrochlorothiazide 25 MG / olmesartan medoxomil 40 MG Oral Tablet - Completed - - Compl eted ergocalciferol 1.25 MG Oral Capsule 11-05T00:00:00Z - Completed Patient Care team information Name Category Status Period Participants - - Proposed period not known -
--- OUTSIDE RECORDS SUMMARY | 2024-11-12 13:24 | XMS_ITS | Encounter Summary ---
Author Organization [facility] Address [facility] [place] [address] Care Team Providers Care Supervisor Cigar Making Hand Name Role Phone Dilshad Portillo MD Primary Care Provider [phone] Gee Coyle MD Unavailable [phone] Encounter Details Date Type Department Care Team (Late st Contact Info) Description 09/19/2017 Abstract [facility] [address] [place] [id number] Gee Coyle MD [address] [place] [address] Social History Tobacco Use Types [...] on filedocumented in this encounter Care Teams Supervisor Cigar Making Hand Relationship Specialty Start Date End Date Dilshad Portillo MD [address] [place] [address] PCP - General INTERNAL MEDICINE 09/25/17 Gee Coyle MD [address] [place] [address] [employer] Research Technician CARDIOVASCULAR DISEASE 09/25/17 documented as of this encounter
--- OUTSIDE RECORDS SUMMARY | 2024-11-12 13:24 | XMS_ITS | Clinical Summary ---
Author Organization [facility] Address formerly [facility] [place] [address] Care Team Providers Care Hand Outside Cutter Name Role Phone Dilshad Portillo MD Primary Care Provider [phone] Gee Coyle MD Unavailable [phone] Allergies No known active allergies Medications fluticasone-salm eterol 250-50 MCG/DOSE inhaler Inhale 1 puff into the lungs 2 (two) times daily. Active albuterol sulfate HFA 108 (90 Base) MCG/ACT inhaler Inhale 2 puffs into the lungs every 6 (six) hours as needed for Wheezing. Active Active Problems Problem Noted Date Diagnosed Date Precordial pain 11/01/2017 COPD (chronic obstructive pu lmonary disease) ([facility]) Obesity HTN (hypertension) Family History Medical History [...] 8:22 AM CDT Height 163 cm (5' 4.17) 11/12/2017 8:2 2 AM CDT Body Mass [...] patient's age to complete this topic Insurance [employer] [facility] [employer] [facility] Advance Directives * Full Code (Latest Code Status on File) Date Activated Date Inactivated Comments 11/12/2017 12:24 PM 11/12/2017 6:00 PM Care Teams Hand Outside Cutter Relationship Specialty Start Date End Date Dilshad Portillo MD [address] [place] [address] PCP - General INTERNAL MEDICINE 09/25/17 Gee Coyle MD [address] [place] [address] [place] Airplane Captain CARDIOVASCULAR DISEASE 09/25/17
== END 2024-11-12 13:21 | disposition home or self-care (01) ==
LOC: CHSIMG 13:21
PROVIDERS: PCP Internal Medicine; Visit Provider Internal Medicine
DX: Z12.31 Encounter for screening mammogram for malignant neoplasm of breast (principal)
CPT/HCPCS: 77063; 77067